=== PATIENT | male | born 1965 | race Hispanic/Latino ===

== ENCOUNTER 2018-11-30 14:26 | Emergency (ER) | payer SELFPAY ==
[2018-11-30 14:28] VITALS: BMI 22.6
[2018-11-30 14:41] VITALS: RESP 16; TEMP 98.2; O2SAT 97
--- NOTE | 2018-11-30 15:48 | ED PDOC ---
HPI: Skin/Bite Injury Time Seen by Provider: 11/30/18 14:49 Chief Complaint (Nursing): Abnormal Skin Integrity Additional History Per: Patient Additional Complaint(s): This is 53 y/o HIV positive male comes to the ER c/o 5 days hx of progressively worsening rash on left flank area. Patient reports he noticed mild skin changes 5 days ago around the flank which progressed from left abdomen to back on same side. Reports some pain but denies any itching, fever, c/n/v/d. patient is on antiviral medications for his HIV, last CD4 Counts in 08/2018 was 606. Last Cr clearance in 08/2018 was normal with normal GFR/Cr/BUN. Patient denies any other health changes PMH: HIV, HTN, PreDiabetes and HLD PSH: Denies Allg: NKDA SH: Denies any alcohol/smoking or drug use FH: + for throat cancer, HTN and DM-II ROS: As per HPI Past Medical History Vital Signs: Last Vital Signs Temp 98.2 F 11/30/18 14:36 Pulse 88 11/30/18 14:36 Resp 16 11/30/18 14:36 BP 135/94 H 11/30/18 14:36 Pulse Ox 97 11/30/18 14:36 - Medical History PMH: Anemia, HIV, HTN, Hypercholesterolemia Denies: Chronic Kidney Disease - Surgical History Surgical History: Tonsillectomy - Family History Family History: States: No Known Family Hx - Home Medications Home Medications: Ambulatory Orders Medication Instructions Recorded Emtricita/rilpivir/tenofovir 1 tab PO DAILY 07/28/14 [Complera 200 mg-25 mg-300 mg] Sulfamethoxazole 168 mg PO DAILY 07/28/14 Acyclovir [Zovirax] 800 mg PO 5XD 10 Days #50 tablet 11/30/18 Prednisone 50 mg PO DAILY #4 tab 11/30/18 - Allergies Allergies/Adverse Reactions: Allergies Allergy/AdvReac Type Severity Reaction Status Date / Time No Known Allergies Allergy Verified 11/30/18 14:41 Review of Systems Constitutional: Positive for: Weakness. Negative for: Fever, Chills, Sweats Eyes: Negative for: Pain, Vision Change, Conjunctivae Inflammation ENT: Negative for: Ear Pain, Ear Discharge Cardiovascular: Negative for: Chest Pain, Palpitations, Orthopnea, Paroxysmal Noc. Dyspnea Respiratory: Negative for: Cough, Shortness of Breath, Hemoptysis Gastrointestinal: Negative for: Nausea, Vomiting, Abdominal Pain, Diarrhea, Constipation Genitourinary Male: Negative for: Dysuria Musculoskeletal: Negative for: Neck Pain Skin: Positive for: Rash (herpetiform vesicles extending from front to back at T8 dermatome, single, wide stripe with blisters and erythema, + tenderness) Neurological: Negative for: Numbness, Incoordination, Confusion, Seizures Psych: Negative for: Anxiety - ECG O2 Sat by Pulse Oximetry: 97 - Progress ED Course And Treament: A/P: 53 y/o HIV positive male comes to the ER for herpes zoster at T8 dermatoma. - Normal Cr clearance in last blood work - STAT Acyclovir 800mg PO - STAT Prednisone 60mg PO - Reevaluation Case discussed with Dr. Mary, agrees with plan Patient understands and agrees with plan Medical Decision Making Medical Decision Making: herpes zoster Disposition - Clinical Impression Clinical Impression: Herpes zoster - Patient ED Disposition Is Patient to be Admitted: No - Disposition Referrals: Shannon Jackson MD [Medical Doctor] - Ruy Johnson MD [Emergency Midlevel Provider] - Disposition: Routine/Home Disposition Time: 15:56 Condition: STABLE Prescriptions: Acyclovir [Zovirax] 800 mg PO 5XD 10 Days #50 tablet Prednisone 50 mg PO DAILY #4 tab Instructions: Shingles Forms: [facility] (American) Print Language: GUYANESE
[2018-11-30 17:05] VITALS: BP 132/82; PULSE 84
== END 2018-11-30 16:04 | disposition home or self-care (01) ==
LOC: H.ER 14:26
DX: B02.9 Zoster without complications (principal); Z21 Asymptomatic human immunodeficiency virus [HIV] infection status; E78.00 Pure hypercholesterolemia, unspecified; R73.03 Prediabetes; I10 Essential (primary) hypertension